=== PATIENT | male | born 1995 | race Caucasian/White ===

== ENCOUNTER 2017-09-30 14:17 | Emergency (ER) | payer BC ==
[2017-09-30 14:23] VITALS: BP 134/86
[2017-09-30 15:03] LABS: Bilirubin,Urine NEG (Negative); Blood,Urine LG (Negative); Calcium Oxalate Crystals,Urine FEW; Color,Urine Yellow (Yellow); Mucus,Urine 3+ /HPF; RBC,Urine > 182.0 /HPF (0.0-6.0); Urobilinogen,Urine < 2.0 mg/dL (<2.0)
[2017-09-30] MEDS ORDERED: TORADOL ONE (15:16)
[2017-09-30] MEDS ORDERED: TORADOL IV ONE (15:19)
[2017-09-30] MEDS ORDERED: NACL 0.9% 1000 ML 1,000 ML ONE (15:22)
[2017-09-30] MEDS ORDERED: NACL 0.9% 1000 ML 1,000 ML IV ONE (15:31)
--- NOTE | 2017-09-30 16:23 | Cat Scan Report ---
FINAL REPORT EXAM: CT ABDOMEN PELVIS WO CON HISTORY: flank pain with nausea COMPARISON: None. TECHNIQUE: Multiple contiguous axial images were obtained from the lung bases to the pubic symphysis without administration of IV contrast. Reformatted sagittal and coronal images were available for review. FINDINGS: Lung bases: Normal. Visualized heart and mediastinum: Normal noncontrast appearance. Liver: Normal noncontrast appearance. Spleen: Normal noncontrast appearance. Pancreas: Normal noncontrast appearance. Gallbladder and Biliary Tree: No calcified gallstones. No biliary ductal dilatation. Adrenal glands: Normal. Kidneys: At least two punctate (2mm) nonobstructive calculi of the right kidney. No hydronephrosis.. Bladder: Normal. Pelvic organs: Normal prostate gland and seminal vesicles. Bowel: No evidence of obstruction. No focal wall thickening. The appendix is normal in caliber without surrounding inflammatory change. Peritoneum: No significant mesenteric adenopathy. No free air or free fluid. Vasculature: Abdominal aorta is normal in caliber without evidence of aneurysm. Normal noncontrast appearance of the portal venous system and the inferior vena cava. Bones and soft tissues: No suspicious osseous lesions. No acute fracture or dislocation. The soft tissues are normal. IMPRESSION: Punctate nonobstructive calculi of the right kidney. No hydronephrosis.
--- NOTE | 2017-09-30 17:45 | Emergency Department Report ---
ED Back Pain/Injury HPI - General Chief Complaint: Abdominal Pain Stated Complaint: FLANK PAIN Time Seen by Provider: 09/30/17 16:58 Source: patient Mode of arrival: Ambulatory Limitations: No Limitations - History of Present Illness Initial Comments: This is a 32-year-old male presents with right flank pain for 2 days. Patient reports pain feels like a needle stuck him in the right side of her back and it is radiating over to the right lower quadrant. Patient reports having diarrhea 2 days ago but has currently revolved. Denies nausea or vomiting, diarrhea, fever, chest pain, shortness of breath, and difficulty voiding. MD Complaint: back pain -: days(s) (2 days) Similar Symptoms Previously: No Place: home, work Radiation: abdomen (right lower quadrant) Severity: severe Severity scale (0 -10): 10 Quality: aching Consistency: constant Improves With: none Worsens With: movement Context: unknown Associated Symptoms: nausea/vomiting. denies: confusion, weakness, chest pain, numbness, difficulty walking, cough, difficulty urinating, diaphoresis, incontinence, fever/chills, constipation, headaches, abdominal pain, loss of appetite, malaise, rash, seizure, shortness of breath, syncope Treatments Prior to Arrival: NSAIDS - Related Data Previous Rx's Medication Instructions Recorded Last Taken Type Ondansetron [Zofran Odt] 4 mg PO Q8H #15 tab.rapdis 06/14/13 Unknown Rx traMADol [Ultram 50 MG tab] 50 mg PO Q6HR PRN #15 tablet 09/30/17 Unknown Rx Allergies Allergy/AdvReac Type Severity Reaction Status Date / Time No Known Allergies Allergy Verified 09/30/17 14:20 ED Review of Systems ROS: Stated complaint: FLANK PAIN Other details as noted in HPI Constitutional: denies: chills, fever Respiratory: denies: cough, shortness of breath, wheezing Cardiovascular: denies: chest pain, palpitations, edema, syncope Gastrointestinal: nausea, vomiting. denies: diarrhea Musculoskeletal: back pain (right flank pain radiating to right lower quadrant) Skin: denies: rash, lesions Neurological: denies: headache, weakness, numbness, paresthesias Psychiatric: denies: anxiety, depression ED Back Pain Physical Exam - Exam General: Vital signs noted. No distress. Alert and acting appropriately. Back/Abdomen: Yes Flank Tenderness (right flank), No Abdominal Tenderness ( right lower quadrant, no rebound, rigidity), No Perithoracic Tenderness, No Perilumbar Tenderness, No Sacroiliac Tenderness, No Straight Leg Raise Pain Neuro: Yes Normal Sensation, Yes Normal DTR's, Yes Normal Gait, No Motor Weakness ED Course Vital Signs 09/30/17 09/30/17 14:21 16:07 Temperature 98.3 F Pulse Rate 92 H Respiratory 20 18 Rate Blood Pressure 134/86 O2 Sat by Pulse 99 Oximetry ED Medical Decision Making - Radiology Data Radiology results: report reviewed CT of abdomen w/o con: Punctate nonobstructive calculi of the right kidney. No hydronephrosis. - Medical Decision Making This is a 22y.o. male that presents with right flank pain for 2 days. Patient is stable and was examined by me. Vitals stable. Obtained UA and CT of abdomen and pelvis without contrast. CT read by radiologist: Punctate nonobstructive calculi of the right kidney. No hydronephrosis. Normal UA. Given Toradol 30 mg IV and normal saline 1 L bolus IV in the ER once. Plan to start Toradol 50 mg by mouth every 6 hours #15 for pain. Discussed plan with patient and agreed to plan. No further questions noted by the patient. Discharged home in stable condition. Follow up with PCP and referral to [facility] in 2-3 days. Critical care attestation.: If time is entered above; I have spent that time in minutes in the direct care of this critically ill patient, excluding procedure time. ED Disposition Clinical Impression: Kidney stone on right side Disposition: DC- TO HOME OR SELFCARE Is pt being admited?: No Does the pt Need Aspirin: No Condition: Stable Instructions: Kidney Stones (ED), Flank Pain (ED) Additional Instructions: Increase fluid intake. Shortly in urine in the toilet and watch for grains in urine. Follow-up with urology in [facility]. Follow-up with primary care provider or [place] [facility] if you don't have a primary care provider in 2-3 days. Prescriptions: traMADol [Ultram 50 MG tab] 50 mg PO Q6HR PRN #15 tablet PRN Reason: Pain Referrals: [facility] [Outside] - 3-5 Days [facility] [Provider Group] - 3-5 Days Forms: Work/School Release Form(ED) Time of Disposition: 19:22 Print Language: FAROESE
== END 2017-09-30 19:35 | disposition home or self-care (01) ==
LOC: ED 14:17
DX: N20.0 Calculus of kidney (principal)
CPT/HCPCS: 74176; 81001; 96361; 96374; 99284; J1885; J7030